=== PATIENT | female | born 1990 | race Caucasian/White ===

== ENCOUNTER 2020-08-29 23:43 | Emergency (ER) | payer MEDICAID | END 2020-08-29 23:55 | disposition left against medical advice (07) | LOC: ER 23:43 | DX: O26.891 Other specified pregnancy related conditions, first trimester (principal); R06.02 Shortness of breath; Z3A.01 Less than 8 weeks gestation of pregnancy; Z53.21 Procedure and treatment not carried out due to patient leaving prior to being seen by health care provider ==

== ENCOUNTER 2020-09-17 11:25 | Emergency (ER) | payer MEDICAID ==
[~2020-09-17] VITALS: Ht 152.4 cm; Wt 79.0 kg
[2020-09-17 12:03] VITALS: BP 139/78
[2020-09-17] MEDS ORDERED: OXYM15MI4 NS (12:37)
--- NOTE | 2020-09-17 12:37 | PHYS DOC ---
Past History Past Medical History: No Pertinent History Past Surgical History: Additional Smoking Information: 7 cigarettes a day Alcohol Use: None Adult General Chief Complaint Chief Complaint: CONGESTION HPI HPI Patient is a G2, P1 at 34 weeks and "I cannot remember the days" presenting for nasal congestion. She has history of ongoing tobacco abuse otherwise is absent of any pertinent medical issues and does not take any medications besides daily multivitamin a day. Reports she has had 5 days of nasal congestion and a dry nonproductive cough. Saw her PROCESS [employer]INE[employer] TECHNOLOGIST 3 days prior and was instructed on continued supportive care practices for likely viral/allergy related symptoms. She has been taking Tylenol and Benadryl without significant relief. She cites ongoing postnasal drip in absence of fever. No abdominal pain, ripping or tearing pains, vaginal discharge or bleeding or loss of fluid, she continues to have active baby movements Review of Systems Review of Systems Fourteen body systems of review of systems have been reviewed. See HPI for pertinent positives and negative responses, other aranda all other systems are negative, non-pertinent or non-contributory Physical Exam Physical Exam General: Appears well, non toxic, and comfortable Skin: Warm, dry. Normal for ethnicity. HEENT: Atraumatic. PERRLA. Rhinorrhea and congestion. Nasal turbinates boggy b/l. Moist mucous membranes. Uvula midline. Maintaining secretions with moderate postnasal drip present. No phonation changes. Neck: Trachea midline. Normal ROM. No stridor. Respiratory: Normal WOB. CTAB w/o w/r/r. No tachypnea. Cardiovascular: Regular rate and rhythm. Normal peripheral perfusion. Abdomen: Soft and gravid. Non tender. No distension. heart tones 154, baby active Back: Normal ROM. Musculoskeletal: No swelling or deformity. Neuro: Alert and oriented x 4. MAEE. Lymph: No cervical LAD. Psych: Normal affect and mood. Current Patient Data Vital Signs Vital Signs Date Time Temp Pulse Resp B/P (MAP) Pulse Ox O2 Delivery O2 Flow Rate FiO2 09/17/20 12:03 98.0 99 20 139/78 (98) 99 Room Air EKG EKG [] Radiology/Procedures Radiology/Procedures [] Heart Score C/O Chest Pain: No Risk Factors: Risk Factors: DM, Current or recent (<one month) smoker, HTN, HLP, family hist ory of CAD, obesity. Risk Scores: Risk Factors: DM, Current or recent (<one month) smoker, HTN, HLP, family history of CAD, obesity. Course & Med Decision Making Course & Med Decision Making ABCs unremarkable. I disclosed entirety of ER findings and discussed most likely diagnosis of likely self-limiting conditions such as viral URI versus seasonal allergies. Patient's main complaint today is nasal congestion, joint decision made to try [id number] nasal spray in addition to ongoing supportive care practices such as Tylenol for pain control and antihistamine for allergic purposes. Joint decision made to defer any further diagnostic work-up given overall well appearance of patient and absent of any concerning signs or symptoms. As such, I stressed need for close outpatient follow-up with [employer]IST to review today's ER visit. Strict return precautions were also discussed at length with good understanding by patient. Patient voiced understanding and a greement with the plan. Patient knows to come back for repeat evaluation if concerning signs or symptoms present prior to outpatient follow-up. Hemodynamically stable, ambulatory and well-appearing at time of disposition. Dragon Disclaimer Dragon Disclaimer This electronic medical record was generated, in whole or in part, using a voice recognition dictation system. Departure Departure: Impression: Primary Impression: Cough Additional Impression: and not yet delivered in third trimester Disposition: 01 HOME / SELF CARE / HOMELESS Condition: STABLE Referrals: CHLOE CARL MD (PCP) Patient Instructions: Viral Syndrome Additional Instructions: You were seen for a nasal congestion and dry cough. Continue home antihistamine use such as loratadine or Benadryl. You can use an OTC sinus rinse to help with sinus congestion. In addition, I have prescribed Afrin medication for nasal congestion that you should use for the next 2 or 3 days. As discussed, please try your best to stop ongoing tobacco abuse. Your cough may persist for a few weeks but your other symptoms should gradually improve. You should make sure to drink plenty of fluids. You should return to the ED if you develop fever, worsening cough, shortness of breath, chest pain, or any other new or concerning symptoms. Scripts Oxymetazoline Hcl (AFRIN) 15 Ml Mist 15 ML NS BID for NASAL CONGESTION, #1 SPRAY Prov: YULI HDEZ DO 09/17/20 Problem Qualifiers YULI HDEZ DO Sep 17, 2020 12:37
== END 2020-09-17 12:48 | disposition home or self-care (01) ==
LOC: ER 11:25
DX: O26.893 Other specified pregnancy related conditions, third trimester (principal); R05 Cough; R09.81 Nasal congestion; O99.333 Smoking (tobacco) complicating pregnancy, third trimester; Z3A.34 34 weeks gestation of pregnancy
CPT/HCPCS: 99282